=== PATIENT | female | born 1950 | race Caucasian/White ===

== ENCOUNTER 2022-06-30 08:26 | Day surgery (SDC) | payer MEDICARE, SELFPAY ==
[2022-06-30] VITALS (23 sets, daily range): BP systolic 97–151; BP diastolic 64–102; PULSE 53–112; RESP 14–20; TEMP 36.6–37.2; O2SAT 92–97; BMI 27.8
[2022-06-30] MEDS: CELECOXIB 200 MG CAPSULE PO ×2 (08:57→20:56)
[2022-06-30] MEDS: OXYCODONE (CR) 10 MG TAB.ER.12H PO (08:57)
[2022-06-30] MEDS: LACTATED RINGERS 1000 ML 1,000 ML 100 ML IV ×2 (09:00→12:17)
[2022-06-30] MEDS: MIDAZOLAM HCL 1 MG/ML inj IVP (10:15)
[2022-06-30] MEDS: fentaNYL 100 MCG/2 ML inj IVP (10:15)
--- NOTE | 2022-06-30 10:35 | SUR.PREOP ---
TIME?OUT:?1012 PT/RN/MDA?VERIFICATION?OF?SURGICAL?SITE,?PROCEDURE,?AND?CONSENT OBTAINED?PRIOR?TO?INVASIVE?PROCEDURE.
[2022-06-30] MEDS: TRANEXAMIC ACID 100 MG/ML INJ 1000 MG IV (11:59)
[2022-06-30] MEDS: CEFAZOLIN 2 GM in 0.9 % SODIUM CHLORIDE Mini-bag 100 ML IVPB ×2 (11:59→18:49)
--- NOTE | 2022-06-30 12:28 | CRLHL7_ITS ---
For Patients: As a result of the Cures Act, medical imaging exams and procedure reports are released immediately into your electronic medical record. You may view this report before your referring provider. If you have questions, please contact your health care provider. Indication: Postop Technique: Two views right knee Findings/Impression: Hardware from a right total knee arthroplasty is in satisfactory position. Bone alignment is normal. No sign of acute fracture. Postop changes are within normal limits. Dictated by Santiago Welsh MD @ 06/30/2022 2:37:59 PM (Electronically Signed)
--- NOTE | 2022-06-30 12:59 | W.PM.NB ---
Nerve Block Nerve Block Date Seen: 06/30/22 Type of block requested by surgeon for post-operative analgesia: adductor canal Side: right Time out performed: Yes Verification of patient name: Yes Verification of date of : Yes Site marking: site marked Name of person performing procedure: Shawn Continuous monitoring Was continuous monitoring of O2 sat, B/P, nuclear monitoring technician, recorded every 15 minutes?: Yes Procedure Checklist: sterile prep, needles and gloves Ultrasound guided. Images saved: Yes Medications given in 5ml increments after negative aspiration: Marcaine %: 0.5 mL: 20 Needle gauge: 20 Decadron (mg): 10 Precedex (mcg): 25 Patient tolerated procedure well: Yes Additional comments: Needle noted adjacent to nerve Block Charges Block Charge (with Pro Fee): Femoral Nerve Use of Ultrasound Machine for Block: Yes- US Guidance/pain block
--- NOTE | 2022-06-30 13:00 | W.PM.NB ---
Nerve Block Nerve Block Date Seen: 06/30/22 Type of block requested by surgeon for post-operative analgesia: geniculars Side: right Time out performed: Yes Verification of patient name: Yes Verification of date of : Yes Site marking: site marked Name of person performing procedure: Shawn Continuous monitoring Was continuous monitoring of O2 sat, B/P, pvc monitor, recorded every 15 minutes?: Yes Procedure Checklist: sterile prep, needles and gloves Medications given in 5ml increments after negative aspiration: Marcaine %: 0.5 mL: 10 Needle gauge: 25 Patient tolerated procedure well: Yes Block Charges Block Charge (with Pro Fee): Genicular Nerve Block Use of Ultrasound Machine for Block: No
--- NOTE | 2022-06-30 13:32 | PM.ORPRC ---
Procedure Note Date of procedure: 06/30/22 Procedure: PREOPERATIVE DIAGNOSIS: 1. Right knee osteoarthritis, primary, severe POSTOPERATIVE DIAGNOSIS: 1. Right knee osteoarthritis, primary, severe PROCEDURE: 1. Right total knee arthroplasty SURGEON: Nate Workman MD. PRICING SUPERVISOR: Gerber Bermeo PA-C - Of note, a skilled reference library assistant was critical for this case to aid in patient positioning, tissue retraction, limb manipulation/positioning, and closure. ANESTHESIA: Spinal anesthetic IMPLANTS: DePuy J&J all cemented TKA - Attune PS femur size 6 narrow, size 5 tibia, 7 mm poly spacer, 38 mm patella TOURNIQUET: 90 min at 300 torr EBL: 50 ml COMPLICATIONS: None evident INDICATIONS: The patient is a pleasant 72-year-old female who has experienced severe right knee pain and difficulty bearing weight. Workup included x-rays which revealed severe osteoarthrosis in the knee. Given the deformity, the dysfunction, and the pain, as well as the failure of nonoperative management, recommendation was made for surgery. FINDINGS: Full-thickness chondral loss broadly throughout both medial and lateral compartments as well as patellofemoral compartment. Erosion into the adjacent bones related to extensive wear indicating its chronicity. DESCRIPTION OF PROCEDURE: Following a thorough discussion of risks, benefits, and alternatives consent was obtained and the right knee was marked. The patient was brought to the operating room and placed supine on the operating table. Induction of anesthesia was undertaken. 2 g IV Ancef and 1 g tranexamic acid was administered within 1 hr of incision preoperatively. Proper time-out was performed identifying proper patient, site, procedure. The operative extremity was prepped and draped in the appropriate sterile fashion using ChloraPrep after the patient was positioned supine with all bony prominences well padded. A longitudinal, anterior, midline skin incision was made starting approximately 3cm proximal to the superior pole of the patella and advanced distal to the tibial tubercle. A median parapatellar arthrotomy was created. A medial subperiosteal sleeve was created with knife, samuel elevator and curved osteotome. The retropatellar fatpad was resected and the synovium in the suprapatellar pouch excised to visualize the anterior femoral cortex. Femoral preparation was performed via an intramedullary guide. Step drill allowed access into the femoral canal. The distal cutting guide was placed with 6 ? of valgus and 10 mm cut on the distal femur. Femur was sized using a anterior referencing guide in 3? of external rotation. This found have a best fit with the sizing noted above. The 4 in 1 cutting block was then placed, and the distal femur shaped accordingly. The box cut was then created and the trial implant inserted to confirm appropriate fit. We turned our attention to the proximal tibia. Extramedullary guide was utilized for cutting with the goal of being 90 degree cut from the mechanical axis of the tibia in the varus/valgus plane utilizing tibial crest as the primary alignment. Initially a 2 mm resection was performed from the medial tibial plateau. Ultimately, balancing was achieved in both flexion and extension in both varus and valgus. The knee was able to achieve full extension as well comfortably. The patella was initially measured and found have a thickness of 23 mm. It was resected back to approximately 14 mm. It was sized to be a best fit with as noted above. This was drilled, trial placed. All trials were placed and found to have an excellent stability and balance. At this stage, trial implants were removed, the knee was thoroughly irrigated with normal saline, and the cement was mixed. After irrigation, the knee was thoroughly dried, and cement placed, with the real tibial and femoral implants placed along with the patella. Trial poly spacer was placed and confirmed to have excellent range of motion and full extension, and the real poly spacer opened and inserted. All extra cement was removed, and a 3 min Betadine soak performed. Finally, a final irrigation round with normal saline was performed. Of note, her bone was very soft. During the irrigation process, some of the bone was more clearly delineated and almost appeared as if the bone was being washed away. Closure performed with 0 Vicryl and #0 Stratafix for the quad tendon/retinaculum. 2-0 Vicryl for the subcutaneous and 4-0 Stratafix for subcuticular closure. Dressings were applied and the patient was awoken from anesthesia after the tourniquet deflated and transferred the PACU in stable condition. A skilled reference library assistant was critical for this case to aid in patient positioning, tissue retraction, bone exposure, limb manipulation/positioning, patient safety, and closure. PLAN: 1. Weight bear as tolerated operative extremity. 2. 23 hr perioperative antibiotics. 3. Ice. 4. PT/OT consults for ambulation assistance/mobility education. 5. Social work consult for discharge planning. 6. DVT prophylaxis with at SCDs, Miquel Hose, and aspirin twice daily.
--- NOTE | 2022-06-30 14:38 | W.ANESCHARGE ---
Anesthesia Charges Start Date/Time Anesthesia Start Date: 06/30/22 Anesthesia Start Time: 11:59 Stop Date/Time Anesthesia Stop Date: 06/30/22 Anesthesia Stop Time: 14:25 Summary Emergency: No Extremes of Age: Over 68-CPT [id number]
--- NOTE | 2022-06-30 14:42 | W.ANESCHARGE ---
Anesthesia Charges Start Date/Time Anesthesia Start Date: 06/30/22 Anesthesia Start Time: 11:59 Stop Date/Time Anesthesia Stop Date: 06/30/22 Anesthesia Stop Time: 14:25 Summary Emergency: No
[2022-06-30] MEDS: MEPERIDINE 25 MG/ML INJ 12.5 MG IVP (15:12)
[2022-06-30] MEDS: OXYCODONE 5 MG TABLET PO ×3 (16:02→20:57)
[2022-06-30] MEDS: ACETAMINOPHEN 500 MG TABLET 1000 MG PO (18:48)
--- NOTE | 2022-06-30 19:48 | PC.NURSE ---
shift [id number] pt this shift return from PACU at 1505, rating pain 4/10, tolerating ice chips. Pt shivering and required bear hugger at max temp until 1700 when removed. Pt spouse and son at bedside, providing support. Advanced diet to regular and tolerated dinner well. Cyro cuff on right knee, wiggling toes, pedal pulse felt. Transfer to toilet with gait belt, walker, and 2 person assist. Pain increased during movement treated with oxycodone per eMAR. Pt incontinent of urine during transfer and stated I wont wait so long next time.
--- NOTE | 2022-06-30 19:52 | P.IMCN_ITS ---
Date of Consult Consult date: 06/30/22 Requesting Physician: Orthopedics Primary Care Provider: Not a Local Provider, Dr. Catherine Cole Consult Narrative Reason for consult: Postoperative management: hypertension and other active medical conditions Narrative: Janine Barber is a 72 year old woman who presents for elective right total knee arthroplasty due to end-stage right gonarthrosis. Procedure reportedly under taken successfully without complications. Minimal blood loss. Postoperative pain under adequate control when I see her. Denies chest heaviness, pressure, tightness, pain. Denies palpitations. Denies syncope or near-syncope. Denies nausea or vomiting. Denies cough or dyspnea at rest. Denies fevers, rigors, diaphoresis. Review of Systems Status of ROS: Reports: 6 or more systems reviewed and unremarkable except as noted in History and below Narrative: Denies abdominal pain, nausea, vomiting, dyspepsia, dysphagia, odynophagia. Denies blood loss of any sort. Denies dysuria, urgency, frequency, hematuria. No recent focal motor neurologic deficits. No night sweats, weight loss, or weight gain. Denies polyuria, polydipsia, polyphagia. Denies diarrhea or constipation. Denies myalgias or other arthralgias. Denies easy bruisability. [facility] Medical History (Updated 06/30/22 @ 20:01 by Manav Becker MD) Arthritis Cardiac arrhythmia Cerebrovascular accident Elevated cholesterol Encounter for preoperative screening laboratory testing for COVID-19 virus Hypertension Hypothyroid Irritable bowel syndrome (IBS) Osteoarthritis of left knee Pernicious anemia Surgical History H/O vaginal hysterectomy History of left knee surgery (~04/2009) History of total left knee replacement (~2013) S/P total knee arthroplasty Status post right knee replacement Status post right knee replacement Family History Father Heart attack Mother Osteoporosis Brother Alzheimer disease Social History Smoking Status: Former smoker What tobacco products do you use: cigarettes Smoking quit date/years: >15 years ago Do you use any of these nicotine containing products: None How often do you have a drink containing alcohol: monthly or less Alcohol type: wine How many standard drinks containing alcohol do you have on a typical day: 1 or 2 How often do you have six or more drinks on one occasion: Never AUDIT-C Alcohol total score: 1 Non-prescribed substance use: over the counter (eg: immodium) Non-prescribed substance use details: calcium, vitamins, turmeric, probiotic Caffeine: Yes (rare Diet Coke) Meds Home Medications and Allergies Home Medications Medication Instructions Recorded Confirmed Type Lactobacillus rhamnosus GG 5 1 tab PO QDAY 05/29/22 06/30/22 History billion cell chewable tablet clopidogrel 75 mg tablet 75 mg PO DAILY 05/29/22 06/30/22 History cyanocobalamin (vitamin B-12) 1,000 mcg IM Q30D 05/29/22 06/30/22 History 1,000 mcg/mL injection solution fluoxetine 10 mg capsule 10 mg PO QDAY 05/29/22 06/30/22 History levothyroxine 112 mcg tablet 112 mcg PO QDAY 05/29/22 06/30/22 History lisinopril 5 mg tablet 5 mg PO DAILY 05/29/22 06/30/22 History simvastatin 40 mg tablet 40 mg PO HS 05/29/22 06/30/22 History amoxicillin 500 mg capsule 2,000 mg PO PRN 06/30/22 06/30/22 History famotidine 20 mg tablet (Acid 20 mg PO HS 06/30/22 06/30/22 History Controller) omeprazole 20 mg capsule,delayed 20 mg PO DAILY 06/30/22 06/30/22 History release Allergies Allergy/AdvReac Type Severity Reaction Status Date / Time No Known Drug Allergies Allergy Verified 06/30/22 08:58 Exam Narrative: Exam Narrative: Postoperatively appears comfortable. No acute distress. Alert, oriented to self, place, time, situation. Friendly and cooperative. Articulate. Mood and affect are congruent. Lung sounds are clear to auscultation. No wheezing, rhonchi, or rales. No CVA tenderness. Heart tones with regular rhythm, normal S1-S2, without murmur, gallop, or rub. Abdomen with active bowel sounds, soft, nontender, without rebound or guarding. Extremities without edema. Palpable pulses upper and lower extremities. Const: Vital Signs, click to edit/add: Vital Signs - 24 hr 06/30/22 09:25 06/30/22 10:15 06/30/22 10:20 Temperature 99.0 F Pulse Rate 65 56 L 53 L Respiratory Rate 16 16 14 Blood Pressure 143/92 H 132/79 115/74 Pulse Oximetry 94 93 96 Oxygen Delivery Me thod Room Air Nasal Cannula Nasal Cannula Oxygen Flow Rate 4 4 06/30/22 10:25 06/30/22 10:30 06/30/22 11:00 Temperature Pulse Rate 56 L 60 60 Respiratory Rate 14 14 14 Blood Pressure 103/68 102/68 136/79 Pulse Oximetry 94 94 97 Oxygen Delivery Me thod Nasal Cannula Nasal Cannula Nasal Cannula Oxygen Flow Rate 4 4 2 06/30/22 14:28 06/30/22 14:35 06/30/22 14:40 Temperature 98.4 F Pulse Rate 76 66 61 Respiratory Rate 16 18 16 Blood Pressure 120/89 134/99 H 113/83 Pulse Oximetry 95 95 95 Oxygen Delivery Me thod Room Air Room Air Room Air Oxygen Flow Rate 4 06/30/22 14:45 06/30/22 14:50 06/30/22 14:55 Temperature Pulse Rate 60 60 66 Respiratory Rate 16 16 16 Blood Pressure 115/99 H 111/69 97/64 Pulse Oximetry 95 95 95 Oxygen Delivery Me thod Room Air Room Air Room Air Oxygen Flow Rate Documenting provider has reviewed patient's vital signs: yes Assessment and Plan Assessment and plan (1) Status post right knee replacement: Status: Acute (2) Osteoarthritis of right knee: Problem comment: Right knee osteoarthrosis, severe - Valgus malalignment Status: Acute (3) Cerebrovascular accident: Problem comment: 2020 Status: Acute (4) Hypertension: Status: Acute (5) Elevated cholesterol: Status: Acute (6) Hypothyroid: Status: Acute Plan 1. Reviewed impression with patient. Answered her questions. 2. Will restart most of her baseline medicines, although I will hold her antihypertensive medicines for now. 3. Agree with venous thromboembolism prophylaxis as presently instituted. 4. Agree with perioperative antibiotic prophylaxis as presently instituted. 5. Will be available to support the patient and Orthopedic surgery team throughout the patient's hospitalization.
[2022-06-30] MEDS: ASPIRIN 81 MG TABLET EC PO (20:56)
[2022-06-30] MEDS: SENNOSIDES 1 TAB TABLET 2 TAB PO (20:56)
[2022-06-30] MEDS: SIMVASTATIN 40 MG TABLET PO (20:57)
[2022-06-30] MEDS: FAMOTIDINE 20 MG TABLET PO (20:57)
[2022-07-01] MEDS: ACETAMINOPHEN 500 MG TABLET 1000 MG PO ×2 (00:12→06:48)
[2022-07-01] MEDS: OXYCODONE 5 MG TABLET PO ×3 (00:31→08:48)
[2022-07-01] MEDS: CEFAZOLIN 2 GM in 0.9 % SODIUM CHLORIDE Mini-bag 100 ML IVPB ×2 (01:45→10:06)
[2022-07-01 03:00] VITALS: BP 141/75; PULSE 63; RESP 16; TEMP 37; O2SAT 94
[2022-07-01] MEDS: OMEPRAZOLE 20 MG CAPSULE DR PO (06:48)
[2022-07-01 06:59] LABS: Hematocrit 34.9 % (33.0-51.0); Hemoglobin* 11.2 gm/dL (12.0-16.0); Immature Granulocytes Abs Auto 0.02 K/uL (0.00-0.30); Lymphocytes Percent Auto 10.6 % (20-44); Mean Corpuscular HGB Conc 32 gm/dL (32-36); Mean Corpuscular Hemoglobin 30 pg (26-34); Mean Corpuscular Volume 93 fL (80-100); Monocytes Percent Auto 6.6 % (0.0-11.0); Neutrophils Percent Auto 82.6 % (42.0-72.0); Platelet Count* 253 K/uL (140-440); RDW Coefficient of Variation % 13.6 % (11.5-15.5); Red Blood Count 3.77 m/uL (4.00-5.20)
[2022-07-01 07:06] LABS: Slide Review Reflex No
[2022-07-01 07:10] LABS: Potassium* 4.2 mmol/L (3.6-5.1); Sodium* 139 mmol/L (135-149)
[2022-07-01 07:13] LABS: Creatinine* 0.9 mg/dL (0.5-1.5); Estimated Glomerular Filt Rate 67 ml/min
[2022-07-01 07:14] LABS: Blood Urea Nitrogen* 18 mg/dL (7-30)
--- NOTE | 2022-07-01 07:23 | PC.NURSE ---
[id number]: Patient pleasant and cooperative. Rates pain 0-3/10. PRN Oxycodone x3 administered for relief. Dressing to R. knee C/D/I. CMS intact. Denies N/V. Tolerating regular diet. A1,MIRA almaguer.
[2022-07-01 07:37] VITALS: BP 133/85; PULSE 68; RESP 16; TEMP 36.6; O2SAT 93
--- NOTE | 2022-07-01 08:04 | PM.ORPN ---
Subjective Subjective Date Seen: 07/01/22 Principal diagnosis: Status postop day 1 right total knee arthroplasty Interval history: Patient reports doing well. No acute events over night. Pain managed with scheduled /PRN medications and ice. DVT prophylaxis clopidogrel, bilateral knee high Miquel stockings, and SCDs.. Denies fevers, chills, aches, N/V, CP, SOB/DINERO, tachycardia, or lightheadedness. Reports that she slept well last night from midnight-0600. Good appetite. Ortho Exam Narrative Exam Narrative: -Patient appears comfortable in recliner; no apparent acute distress -Alert and oriented times 3 -Operative knee mild-moderately swollen; soft tissues supple; no obvious erythema. Warmth appropriate. Ice present -Surgical dressing clean, dry, intact; no obvious drainage, no erythematous streaking peripheral to the bandage -Operative calf slightly firm, contralateral calf soft; no significant swelling, edema, tenderness, erythema, discoloration, warmth, or palpable cords -2+ DP/PT pulses, intact dermatomes and myotomes distally (5/5 strength) Const Vital Signs, click to edit/add: Vital Signs - 24 hr 06/30/22 09:25 06/30/22 10:15 06/30/22 10:20 Temperature 99.0 F Pulse Rate 65 56 L 53 L Pulse Rate [Right Pulse Oximeter] Respiratory Rate 16 16 14 Blood Pressure 143/92 H 132/79 115/74 Blood Pressure [Left Arm] Pulse Oximetry 94 93 96 Oxygen Delivery Method Room Air Nasal Cannula Nasal Cannula Oxygen Flow Rate 4 4 06/30/22 10:25 06/30/22 10:30 06/30/22 11:00 Temperature Pulse Rate 56 L 60 60 Pulse Rate [Right Pulse Oximeter] Respiratory Rate 14 14 14 Blood Pressure 103/68 102/68 136/79 Blood Pressure [Left Arm] Pulse Oximetry 94 94 97 Oxygen Delivery Method Nasal Cannula Nasal Cannula Nasal Cannula Oxygen Flow Rate 4 4 2 06/30/22 14:28 06/30/22 14:35 06/30/22 14:40 Temperature 98.4 F Pulse Rate 76 66 61 Pulse Rate [Right Pulse Oximeter] Respiratory Rate 16 18 16 Blood Pressure 120/89 134/99 H 113/83 Blood Pressure [Left Arm] Pulse Oximetry 95 95 95 Oxygen Delivery Method Room Air Room Air Room Air Oxygen Flow Rate 4 06/30/22 14:45 06/30/22 14:50 06/30/22 14:55 Temperature Pulse Rate 60 60 66 Pulse Rate [Right Pulse Oximeter] Respiratory Rate 16 16 16 Blood Pressure 115/99 H 111/69 97/64 Blood Pressure [Left Arm] Pulse Oximetry 95 95 95 Oxygen Delivery Method Room Air Room Air Room Air Oxygen Flow Rate 06/30/22 15:00 06/30/22 15:00 06/30/22 15:30 Temperature 98.3 F 98.3 F 98.3 F Pulse Rate 62 Pulse Rate [Right Pulse Oximeter] 62 55 L Respiratory Rate 20 20 Blood Pressure Blood Pressure [Left Arm] 125/76 136/69 125/76 Pulse Oximetry Oxygen Delivery Method Room Air Room Air Room Air Oxygen Flow Rate 06/30/22 15:45 06/30/22 16:00 06/30/22 17:00 Temperature 98.4 F 98.4 F 98.4 F Pulse Rate Pulse Rate [Right Pulse Oximeter] 55 L 60 112 H Respiratory Rate 16 16 16 Blood Pressure Blood Pressure [Left Arm] 126/68 137/102 H 137/85 Pulse Oximetry 96 95 95 Oxygen Delivery Method Room Air Room Air Room Air Oxygen Flow Rate 4 4 4 06/30/22 18:00 06/30/22 16:30 06/30/22 19:00 Temperature 98.4 F 98.4 F 97.9 F Pulse Rate Pulse Rate [Right Pulse Oximeter] 95 56 L 91 Respiratory Rate 16 16 16 Blood Pressure Blood Pressure [Left Arm] 145/91 H 146/78 H 151/96 H Pulse Oximetry 95 95 94 Oxygen Delivery Method Room Air Room Air Room Air Oxygen Flow Rate 4 4 06/30/22 20:00 06/30/22 21:00 06/30/22 23:00 Temperature 97.9 F 97.9 F 98.3 F Pulse Rate Pulse Rate [Right Pulse Oximeter] 86 70 85 Respiratory Rate 16 16 18 Blood Pressure Blood Pressure [Left Arm] 141/84 H 143/99 H 119/79 Pulse Oximetry 95 97 92 Oxygen Delivery Method Room Air Room Air Room Air Oxygen Flow Rate 07/01/22 03:00 07/01/22 07:37 Temperature 98.6 F 98 F Pulse Rate Pulse Rate [Right Pulse Oximeter] 63 68 Respiratory Rate 16 16 Blood Pressure Blood Pressure [Left Arm] 141/75 H 133/85 Pulse Oximetry 94 93 Oxygen Delivery Method Room Air Room Air Oxygen Flow Rate Assessment and Plan Assessment and plan (1) Status post right knee replacement: Problem details: POD 1 right total knee arthroplasty Status: Acute (2) Osteoarthritis of right knee: Problem details: Right knee osteoarthrosis, severe - Valgus malalignment Status: Acute (3) Cerebrovascular accident: Problem details: 2019, daily clopidogrel Status: Acute (4) Hypertension: Status: Acute (5) Elevated cholesterol: Status: Acute (6) Hypothyroid: Status: Acute Plan - Complete 23 hour perioperative antibiotics. - PT/OT consult for education and assistance. - Social work consult for discharge planning - Prescribed analgesics as needed - DVT prophylaxis: Clopidogrel, bilateral knee high Miquel Hose stockings and SCDs. She did receieve 81mg ASA this am; safe to continue her daily regimen of clopidogrel restarting today (low concern for bleeding at this time); blood loss not atypical during surgery for right TKA - Anticipation is for discharge to home with spouse today (07/01/2022) if the patient remains medically stable, pain is controlled, and they are safe with mobilization.
[2022-07-01] MEDS: LEVOTHYROXINE 112 MCG TABLET PO (08:11)
--- NOTE | 2022-07-01 08:12 | P.DS_ITS ---
DS: Providers Provider Date Seen: 07/01/22 Date of admission: med/surg recovery 06/30/22 Primary care physician: Not a Local Provider Consults: 06/30/22 14:47 Consult to Occupational Therapy [CONS] Routine Comment: Reason(s) for OT Consult:: ADLs Prior to Discharge Any Restrictions?:: See Comment Comment: See nursing activity order for any restrictions. Consult to Physical Therapy [CONS] Routine Comment: Ambulate in the [place] today. Reason(s) for PT Consult:: TKA TX Protocol POD#0 Any Restrictions?:: See Comment Comment: See nursing activity order for any restrictions. Consult to Physician [CONS] Routine Comment: Consulting Provider: Hospitalists Has provider been notified: No Consult to Final Cigar And Box Examiner [CONS] Routine Comment: Reason for Consult:: Discharge Planning Needs Attending Physician on discharge: Nate Workman MD Date of Discharge: 07/01/22 DS: Diagnosis Discharge Diagnosis (1) Status post right knee replacement: Status: Acute Problem details: POD 1 right total knee arthroplasty DS: Summary Hospital Course Hospital Course: The patient has a history of right knee osteoarthritis, primary, severe. After appropriate preoperative evaluation, the patient underwent right total knee arthroplasty. Postoperatively given anticoagulation for deep vein thrombosis prophylaxis. They progressed to PT/OT and were felt ready and prepared for discharged to home with appropriate pain medication and anticoagulation medications. Patient will continue her clopidogrel postoperatively. Status at Discharge Functional status at discharge: uses cane/walker Overall status at discharge: patient is progressing back to baseline Time Spent with Patient Time attestation: Total time spent providing and/or coordinating discharge services: Time spent: Greater than 30 minutes Exam Const: Vital Signs, click to edit/add: Vital Signs - 24 hr 06/30/22 09:25 06/30/22 10:15 06/30/22 10:20 Temperature 99.0 F Pulse Rate 65 56 L 53 L Pulse Rate [Right Pulse Oximeter] Respiratory Rate 16 16 14 Blood Pressure 143/92 H 132/79 115/74 Blood Pressure [Le ft Arm] Pulse Oximetry 94 93 96 Oxygen Delivery Me thod Room Air Nasal Cannula Nasal Cannula Oxygen Flow Rate 4 4 06/30/22 10:25 06/30/22 10:30 06/30/22 11:00 Temperature Pulse Rate 56 L 60 60 Pulse Rate [Right Pulse Oximeter] Respiratory Rate 14 14 14 Blood Pressure 103/68 102/68 136/79 Blood Pressure [Le ft Arm] Pulse Oximetry 94 94 97 Oxygen Delivery Me thod Nasal Cannula Nasal Cannula Nasal Cannula Oxygen Flow Rate 4 4 2 06/30/22 14:28 06/30/22 14:35 06/30/22 14:40 Temperature 98.4 F Pulse Rate 76 66 61 Pulse Rate [Right Pulse Oximeter] Respiratory Rate 16 18 16 Blood Pressure 120/89 134/99 H 113/83 Blood Pressure [Le ft Arm] Pulse Oximetry 95 95 95 Oxygen Delivery Me thod Room Air Room Air Room Air Oxygen Flow Rate 4 06/30/22 14:45 06/30/22 14:50 06/30/22 14:55 Temperature Pulse Rate 60 60 66 Pulse Rate [Right Pulse Oximeter] Respiratory Rate 16 16 16 Blood Pressure 115/99 H 111/69 97/64 Blood Pressure [Le ft Arm] Pulse Oximetry 95 95 95 Oxygen Delivery Me thod Room Air Room Air Room Air Oxygen Flow Rate 06/30/22 15:00 06/30/22 15:00 06/30/22 15:30 Temperature 98.3 F 98.3 F 98.3 F Pulse Rate 62 Pulse Rate [Right Pulse Oximeter] 62 55 L Respiratory Rate 20 20 Blood Pressure Blood Pressure [Le ft Arm] 125/76 136/69 125/76 Pulse Oximetry Oxygen Delivery Me thod Room Air Room Air Room Air Oxygen Flow Rate 06/30/22 15:45 06/30/22 16:00 06/30/22 17:00 Temperature 98.4 F 98.4 F 98.4 F Pulse Rate Pulse Rate [Right Pulse Oximeter] 55 L 60 112 H Respiratory Rate 16 16 16 Blood Pressure Blood Pressure [Le ft Arm] 126/68 137/102 H 137/85 Pulse Oximetry 96 95 95 Oxygen Delivery Me thod Room Air Room Air Room Air Oxygen Flow Rate 4 4 4 06/30/22 18:00 06/30/22 16:30 06/30/22 19:00 Temperature 98.4 F 98.4 F 97.9 F Pulse Rate Pulse Rate [Right Pulse Oximeter] 95 56 L 91 Respiratory Rate 16 16 16 Blood Pressure Blood Pressure [Le ft Arm] 145/91 H 146/78 H 151/96 H Pulse Oximetry 95 95 94 Oxygen Delivery Me thod Room Air Room Air Room Air Oxygen Flow Rate 4 4 06/30/22 20:00 06/30/22 21:00 06/30/22 23:00 Temperature 97.9 F 97.9 F 98.3 F Pulse Rate Pulse Rate [Right Pulse Oximeter] 86 70 85 Respiratory Rate 16 16 18 Blood Pressure Blood Pressure [Le ft Arm] 141/84 H 143/99 H 119/79 Pulse Oximetry 95 97 92 Oxygen Delivery Me thod Room Air Room Air Room Air Oxygen Flow Rate 07/01/22 03:00 07/01/22 07:37 Temperature 98.6 F 98 F Pulse Rate Pulse Rate [Right Pulse Oximeter] 63 68 Respiratory Rate 16 16 Blood Pressure Blood Pressure [Le ft Arm] 141/75 H 133/85 Pulse Oximetry 94 93 Oxygen Delivery Me thod Room Air Room Air Oxygen Flow Rate DS: Data Data Completed and Pending Labs on day of discharge: Labs from last 24 hours 07/01/22 07/01/22 06:37 06:37 WBC 11.60 H RBC 3.77 L Hgb 11.2 L Hct 34.9 MCV 93 MCH 30 MCHC 32 RDW Coeff of Harper 13.6 Plt Count 253 Neut % (Auto) 82.6 H Lymph % (Auto) 10.6 L [place] % (Auto) 6.6 Eos % (Auto) 0.0 Baso % (Auto) 0.0 Neut # (Auto) 9.60 H Lymph # (Auto) 1.20 [place] # (Auto) 0.80 Eos # (Auto) 0.00 Baso # (Auto) 0.00 Abs Immat Gran (auto) 0.02 Sodium 139 Potassium 4.2 BUN 18 Creatinine 0.9 Estimated Creat Clear 48.00 Estimated GFR 67 Discharge Plan Discharge Disposition: Home, Self-Care Discharging Surgeon: Nate Workman Follow-Up Appointment: F/u with J[facility] one week postop Prescriptions: New acetaminophen 500 mg capsule 500 - 1,000 mg PO Q6H MDD 4000mg PRNQty: 100 0RF oxycodone 5 mg tablet 2.5 - 5 mg PO Q4-6H MDD 6 PRN (Reason: pain) Qty: 42 0RF Rx Instructions: Take as needed for postop pain: 2.5mg mild pain, 5mg moderate-severe pain; wean as tolerated. sennosides-docusate sodium [Senna-S] 8.6-50 mg tablet 1 - 4 tab-cap PO BID PRN (Reason: constipation) Qty: 60 0RF Rx Instructions: Hold medication if experiencing loose stools. No Action Lactobacillus rhamnosus GG 5 billion cell tablet,chewable 1 tab PO QDAY lisinopril 5 mg tablet 5 mg PO DAILY fluoxetine 10 mg capsule 10 mg PO QDAY cyanocobalamin (vitamin B-12) 1,000 mcg/mL solution 1,000 mcg IM Q30D simvastatin 40 mg tablet 40 mg PO HS levothyroxine 112 mcg tablet 112 mcg PO QDAY clopidogrel 75 mg tablet 75 mg PO DAILY amoxicillin 500 mg capsule 2,000 mg PO PRN Rx Instructions: PRIOR TO DENTIST APT omeprazole 20 mg capsule,delayed release(DR/EC) 20 mg PO DAILY famotidine [Acid Controller] 20 mg tablet 20 mg PO HS Activity Level: Activity as Tolerated, Weight Bearing as Tolerated, Use Cane and Use Walker Activity Detail: Wound: ?Do not remove original dressing; we will remove this at first postop visit in 1 week. Only remove dressing if integrity is in question. ?No immersing wound in water; showering okay; light scrub with your hand and body soap, rinse, dab dry ?Sutures are under the skin, will dissolve; allow surgical glue to come off naturally; do not scrub the wound or apply ointments/lotions ?Call our office with any redness that streaks, excessive drainage from the wound, or wound gapping. Ice/Elevate: ?Ice as needed for swelling and discomfort (cryocuff or ice pack); elevate frequently above the heart JOS socks: ?Wear for 1 month, remove for 1 hour 3 times per day ?These are frustrating to take on/off, but are important for blood clot prevention for 1 month after surgery Blood Clot Prevention (DVT): ?Medication: Clopidogrel which is a home medication for her Driving: ?Do not drive while taking narcotic pain medication ?Anticipate 4-6 weeks no driving if operative leg is driving leg Dental: ?No elective dental work for 6 months post-op. If there is an urgent/emergent dental need, contact our office for an antibiotic prescription. Smoking/Alcohol: ?Do not smoke; do no drink alcohol especially when taking postoperative oral narcotic medication Seek Care from you Primary Care Provider if you experience the following issues in the postoperative phase and beyond: ?Bacterial infections such as: pneumonia, bacterial skin infection (cellulitis), UTI, high fever, chills unrelated to the operative body part - call your primary care physician urgently for treatment in hopes to protect your health and the metal implant. Referrals: ?PT, OT per patient preference - evaluate treat total right knee arthroplasty protocol (the training, ROM, ADLs, knee-high Jos socks) Follow up: ?Ortho surgeon follow-up in 6 weeks; repeat radiographs 3 views right knee ?PA-C visit in 1 week *If there are any acute concerns regarding your surgery, please call our orthopedic clinic ([phone]) Discharge Diet: Regular Patient Instructions: Surgical Site Infections (DC) Forms: Work/Release Restrictions Follow-up: Provider,Not a Local [Primary Care Provider] - Discharge Orders: Discharge Order (Routine); Ordered 07/01/22 Ordered By: Gerber Bermeo
[2022-07-01] MEDS: SENNOSIDES 1 TAB TABLET 2 TAB PO (08:49)
[2022-07-01] MEDS: FLUOXETINE HCL 10 MG CAPSULE PO (08:49)
[2022-07-01] MEDS: LACTOBACILLUS ACIDOPHILUS 1 TABLET 1 TAB PO (08:49)
[2022-07-01] MEDS: CELECOXIB 200 MG CAPSULE PO (08:49)
--- NOTE | 2022-07-01 11:53 | PC.NURSE ---
Discharge: Patient pleasant and cooperative. Pain well controlled with PRN medication and continuous ice, received Oxycodone x1 and reported relief from pain. Ambulates well with walker, gait belt and SBA. Tolerating regular diet. Vitals stable and WNL. Dressing over incision site D/C/I. Discharge instructions given and medications reviewed, questions answered as needed. Patient discharged to home @ 1140 via wheelchair, son met at front entrance.
== END 2022-07-01 11:40 | disposition home or self-care (01) ==
LOC: OR 08:27 → MEDSURG 17:37
PROVIDERS: Visit Provider Orthopaedic Surgery Sports Medicine
PROC: (CPT 27447; principal; 2022-06-30 10:15)
DX: M17.11 Unilateral primary osteoarthritis, right knee (principal); I10 Essential (primary) hypertension; E03.9 Hypothyroidism, unspecified; E78.00 Pure hypercholesterolemia, unspecified; Z86.73 Personal history of transient ischemic attack (TIA), and cerebral infarction without residual deficits
CPT/HCPCS: 27447; 01402; 36415; 64447; 64454; 73560; 76942; 82565; 84132; 84295; 84520; 85025; 97110; 97116; 97161; 97165; 97530; 97535; 99100; A9270; C1776; J0330; J0690; J1100; J2175; J2250; J2405; J2704; J2710; J2795; J3010; J7120

== ENCOUNTER 2022-08-05 11:12 | Outpatient (CLI) | payer MEDICARE, SELFPAY ==
[2022-08-05 21:49] LABS: Cholesterol* 198 mg/dL (90-199); HDL Cholesterol* 56 mg/dL (>=50); LDL Cholesterol Calculated 131 mg/dL (<100); Triglycerides* 57 mg/dL (40-149)
== END 2022-08-05 11:13 | disposition home or self-care (01) ==
PROVIDERS: Visit Provider Physician Assistant Surgical
DX: E78.00 Pure hypercholesterolemia, unspecified (principal); I10 Essential (primary) hypertension; R21 Rash and other nonspecific skin eruption; E03.9 Hypothyroidism, unspecified
CPT/HCPCS: 80061; 87070

== ENCOUNTER 2022-08-28 12:00 | Outpatient (RCR) | payer MEDICARE, SELFPAY ==
--- NOTE | 2022-06-25 17:33 | PT.OPE ---
PT [place] [facility] PT [facility] Eval Start: 06/25/22 15:36 Freq: Status: Active Protocol: Document 06/25/22 15:54 KNJ (Rec: 06/25/22 16:34 KNTita Desktop) E-signed By Jean-Paul Posada, PT, ATC Physical Therapy Outpatient Evaluation Insurance Information Insurance Name Medicare B Medical Diagnosis R knee OA Treating Diagnosis R knee pain, stiffness R knee TKA pre-op Referring MD Campos Subjective Subjective Scheduled for R knee TKA L TKA nearly 8 years ago. This required a manipulation because of scar tissue development. Pain Comments high 7 rest, NWB'ing 010 Date of Last Physician Visit 05/29/22 Date of Surgery (If applicable) 06/30/22 Current Work Status Retired Precautions Weight Bearing Status Full Weight Bearing Therapy Limitations/Systems Review Not Limited Objective Range of Motion R 10-130 L 0-120 Strength 5/5 ext and flex R and L knees . Swelling mild Palpation tender along medial joint line and inferior patella-R Posture Mild genu valgus R knee Sensation/Reflexes Normal and symetric Assessment Assessment/Impression Janine is a very pleasant 72 year old woman referred to PT today for a pre-op TKA evaluation and home program education. She is scheduled for her procedure 06/30/22 at the [facility]. Her current knee pain occurs mostly with sustained standing or walking and it often catches during the extension process. She feels confident going into the upcoming surgery having had the procedure on the L knee 7 years ago. Her will be available to offer assistance and they live on the first floor of a condominium so no stairs will challenge her. She was educated in the TKA phase 1 exercises and performed them effectively and correctly. She demonstrated safe and effective use of the wheeled walker while possessing adequate UE and L LE strength to assist. Primary Functional Limitations Walking Standing Squatting Plan of Care Rehabilitation Potential Excellent Physical Therapy Goals 1.Independent L SLR with absence of quad lag, 6 weeks 2.Active/passive L knee flex to 100 degrees to facilitate car transfers 6 weeks 3.Able to ambulate using cane or without x 1,000 feet using proper gait mechanics 12 weeks 4.Stand x 15 min.s, L knee pain 3/10 or less while preparing meals. 12 weeks 5.Manage pain to permit full night sleep without interruption from L knee pain x12 weeks Coordination/Communication With Referral Source Treatment Plan/Direct Interventions Gait Training,Ice/Cold/ Vasopneumatic,Joint Mobilization,Manual Therapy, Neuromuscular Re-ed,Self-Care/ Home Management,Therapeutic Activities,Therapeutic Exercises Frequency/Duration 2x per week x 4-6 weeks 1x per week x 4-6 weeks Patient Will Be Discharged From Therapy Independent w/HEP, Independently Progressing Evaluation Billing Untimed Code Treatment Minutes 40 PT Eval No Charge No Complexity Low Certification Information Initial Certification Date 06/25/22 Ending Certification Date 09/25/22
--- NOTE | 2022-08-04 16:10 | PT.OPDN ---
[facility] Daily Note PT [facility] Daily Note Start: 06/25/22 15:36 Freq: Status: Active Protocol: Document 08/04/22 14:01 CJT (Rec: 08/04/22 15:06 CJT [id number]) E-signed By Manas Cespedes, PT PT OP Daily Progress Note Visit Information Note Type Daily Note,Recert/Progress Note Visit Number 10 Insurance Authorized Visits 100 Physician Authorized Visits eval and treat Insurance Information Insurance Name Medicare B Medical Diagnosis s/p T TKA Treating Diagnosis M25.561 - R knee pain M25.661 - R knee stiffness Z96.561 - R knee replacement Referring MD Campos, Nate CARDENAS Subjective Subjective Janine notes that she felt like something loosened up quite a bit over the weekend and she doesn't have to think too much about how she is walking. Has been walking around her condo more and more without the cane and is gaining confidence. Precautions Weight Bearing Status Full Weight Bearing Objective Other/Pertinent Objective R knee AROM: 2-106 Patient Instructed in Risks/Benefits Yes Therapeutic Exercise Therapeutic Exercise Minutes (minutes) 58 Therapeutic Exercise: To Restore - Bike AAROM seat at 10,9 x 10 Functional Status min - TG Squats 2 x 20 reps - Seated knee extension with heel on chair x 90 - Passive knee flexion in prone with OP 2 x 2' - Seated knee flexion stretch with strap x 90 -Prone knee extension stretch with OP x 90 - Gastroc stretch on slant board 2 x 60 Treatment Minutes Timed Code Treatment Minutes 58 Total Treatment Time 58 Billing Units Therapeutic Exercise Units 4 Assessment/Impression Assessment/Impression Janine has progressed well through therapy thus far and is very pleased with her progress. Pt does have a rash at her anterior R thigh that has increased in size from last week. No signs of infection currently. Her knee feels appropriately warm at this time. Her rash was localized around the knee last week and has since spread from her upper thigh to mid young on R. I did call Dr. Workman's office today and they will reach out to Janine to discuss the rash and if any action is required. SHe is scheduled to meet with Gerber Bermeo PA-C in [place] tomorrow at 10:40am . Janine's knee AROM measures 2-104 degrees today and has shown consistent gradual progression of her ROM over the past 5 weeks. She has been stretching daily at home with the help of her and today we reviewed additional stretches that she may perform with extended hold times up to 5 minutes or as she tolerates. Recommend continued PT services to address deficits and return pt to highest level of function. Plan of Care Physical Therapy Goals 1.Independent L SLR with absence of quad lag, 6 weeks MET 2.Active/passive L knee flex to 100 degrees to facilitate car transfers 6 weeks 3.Able to ambulate using cane or without x 1,000 feet using proper gait mechanics 12 weeks 4.Stand x 15 min.s, L knee pain 3/10 or less while preparing meals. 12 weeks 5.Manage pain to permit full night sleep without interruption from L knee pain x12 weeks Daily Plan of Care Continue per POC
== END 2023-06-04 23:59 | disposition home or self-care (01) ==
PROVIDERS: PCP Orthopaedic Surgery Sports Medicine; Visit Provider Orthopaedic Surgery Sports Medicine
DX: Z96.651 Presence of right artificial knee joint (principal); Z51.89 Encounter for other specified aftercare
CPT/HCPCS: 97016; 97110; 97116; 97140; 97161; 97164